=== PATIENT | female | born 1955 | race Caucasian/White ===

== ENCOUNTER 2024-04-07 19:21 | Inpatient (IN) | payer MEDICARE, OTHER, SELFPAY ==
[2024-04-07 16:33] VITALS: BP 99/71
[2024-04-07 16:53] VITALS: BP 123/82
[2024-04-07 17:00] VITALS: BP 121/56
[2024-04-07 17:08] LABS: % Basophils 0.5 % (0-2); % Immature Granulocytes 0.4 % (0-0.5); % Lymphocytes 17.4 % (20.5-51.1); % Monocytes 13.2 % (1.7-9.3); % Neutrophils 67.5 % (42.2-75.2); Absolute Basophils 0.1 10^3/uL (0-0.2); Absolute Eosinophils 0.1 10^3/uL (0-0.7); Absolute Lymphocytes 1.7 10^3/uL (1.2-3.4); Absolute Monocytes 1.3 10^3/uL (0.1-0.6); Absolute Neutrophils 6.6 10^3/uL (1.4-6.5); Hematocrit 36.6 % (37.0-47.0); Hemoglobin 12.6 g/dL (12.0-16.0); Mean Corp Hgb Conc. 34.4 g/dL (33.0-37.0); Mean Corpuscular Volume 89.9 fL (81.0-99.0); Mean Platelet Volume 9.7 fL (7.4-10.4); Nucleated Red Blood Cells % 0 %; Platelet Count 320 10^3/uL (130-400); Red Blood Cell Count 4.07 10^6/uL (4.20-5.40); White Blood Cell Count 9.8 10^3/uL (4.8-10.8)
[2024-04-07] MEDS: TORADOL 30 MG IV ×2 (17:17→20:50)
[2024-04-07] MEDS: ZOFRAN 4 MG IV (17:17)
[2024-04-07] MEDS: NSS 1000 IV (17:18)
[2024-04-07 17:26] LABS: ALT (SGPT) 20 U/L (0-35); AST (SGOT) 26 U/L (14-36); Albumin 4.3 g/dl (3.5-5.0); Alkaline Phosphatase 73 U/L (38-126); Blood Urea Nitrogen 15 mg/dl (7-17); Calcium 8.9 mg/dl (8.4-10.2); Carbon Dioxide 27 mmol/L (22-30); Chloride 99 mmol/L (98-107); Glucose 112 mg/dl (70-99); Potassium 3.6 mmol/L (3.5-5.1); Sodium 135 mmol/L (135-145); Total Bilirubin 1.1 mg/dl (0.2-1.3); Total Protein 7.1 g/dl (6.3-8.2); eGFR > 60.00
--- NOTE | 2024-04-07 17:48 | ED.GENMED ---
History of Present Illness
General
Chief Complaint: Flank Pain
Source: patient
Time Seen by Provider: 04/07/24 17:08
Travel History
Have you had any contact with someone who has COVID-19?: No
Do you have any symptoms of coronavirus? Fever > 100 degrees, chills, cough, shortness of breath, sore throat, loss of taste or smell, muscle aches, or headache?: No
History of Present Illness
History of Present Illness:
68-year-old female with past medical history of hypertension hyperlipidemia presenting to the emergency department for evaluation of left-sided flank pain x 24 hours. Patient was recently on vacation when she was diagnosed with a urinary tract
infection and prescribed Bactrim. Patient states that she had persistent vomiting and is unsure as to how many of the Bactrim she was actually able to keep down other than maybe 1-2 doses. She still endorses nausea and significant left-sided flank
pain but is denying any fevers, chills, rigors.
Past History
Past History
ED Past Medical History: HTN and Hypercholesterolemia
ED Past Surgical History: Appendectomy, Orthopedic and Urological
Social History
Tobacco: Non-smoker
Alcohol: None
Drug: None
Personal:
Living: with family
Employment: Retired
Family History
Family History: Other (Mother with bladder cancer, ovarian cancer and cervical cancer. Father with PE and small bowel obstruction and prostate cancer, family history of diabetes, pacemakers and hypertension)
Review of Systems
Review of Systems
All Other Systems: ROS reviewed and negative except as documented in HPI and ROS
Phy Exam
Physical Exam
Physical Exam:
GENERAL: Alert , appears uncomfortable and in discomfort
EYE: clear conjunctiva b/l
HEAD: NCAT
ENT: mmm.
CARDIAC: Regular rate and rhythm .
LUNGS: Clear breath sounds bilaterally, no acute respiratory distress, no wheezes/rales/rhonchi
ABDOMEN: Soft, without focal tenderness, no r/g, moderate left CVA tenderness
NEUROLOGICAL: Alert and oriented
SKIN: Warm and dry, skin intact.
MUSCULOSKELETAL: well perfused.
PSYCH: Normal and appropriate interaction.
Scores
Heart Failure Risk
Heart Failure Risk Score: Not Applicable
Heart Score for Chest Pain Patients
STEMI patient?: Not applicable
Withdrawal Assessment of Alcohol
Withdrawal Assessment Completed?: Not applicable
Course
Orders/Labs/Results
Orders:
Orders
04/07/24 17:01
Complete Blood Count/With Diff Urgent
Comprehensive Metabolic Panel Urgent
04/07/24 17:11
CT Abd/pel Without Iv Or Oral Urgent
Comment:
Reason For Exam: left flank pain, recent UTI
0.9% Sodium Chloride 1000 ml [Nss] 1,000 ml IV BOLUS
Ketorolac [Toradol] 30 mg IV NOW STA
Ondansetron Injectable [Zofran] 4 mg IV NOW STA
04/07/24 17:37
Urinalysis Reflex To Culture Urgent
Date Specimen was Collected: 04/07/24
Time Specimen was Collected: 17:06
Urine Microscopic Reflex Cult Urgent
Urine Culture Urgent
JADA Source: U
Specimen Description:
Date Specimen was Collected: 04/07/24
Time Specimen was Collected: 17:06
04/07/24 17:56
Tramadol HCl [Ultram] 50 mg PO NOW STA
04/07/24 18:36
CefTRIAXone [Rocephin] 1,000 mg IV NOW STA
04/07/24 19:09
Admit/Transfer Patient As Directed
Co-Sign Provider:
Level of Care: Inpatient admission
Assign to:: Telemetry
Physician / Group: aaliyah prince
Diagnosis: pyelonephritis
Reason for Telemetry: Other
Other Reason for Telemetry: sepsis
Date to Stop Telemetry: 04/09/24
Time to Stop Telemetry: 11:00
Reason for Hospitalization: pyelonephritis
Expected length of stay greater than two midnights?: Yes
ELOS- Estimated Length of Stay in days: 3
I certify the patient meets the requirements for IP care: Yes
04/07/24 19:11
Code Status As Directed
Resuscitation Status: Full Code
04/09/24 11:00
DC Protocol for Telemetry ONCE
Abnormal Lab Results
04/07/24 04/07/24
17:01 17:37
RBC 4.07 L 10^6/uL
(4.20-5.40)
Hct 36.6 L %
(37.0-47.0)
Absolute Neuts (auto) 6.6 H 10^3/uL
(1.4-6.5)
Absolute Monos (auto) 1.3 H 10^3/uL
(0.1-0.6)
Lymphocytes % 17.4 L %
(20.5-51.1)
Monocytes % 13.2 H %
(1.7-9.3)
Glucose 112 H mg/dl
(70-99)
Urine Ketones Trace A
(Negative)
Ur Occult Blood Reflex 2+ A
(Negative)
Leukocyte Esterase Rfl 1+ A
(Negative)
Urine RBC 3-6 A /HPF
(0-2)
Urine WBC (Reflex) 30-40 A /HPF
(0-5)
Urine Bacteria (Reflex) Few A
(Negative)
04/07/24 17:01
04/07/24 17:01
Vital Signs
Initial and Last Documented VS:
Initial Vital Signs
Temp Pulse Resp BP Pulse Ox
99.3 F 103 18 99/71 98
04/07/24 16:33 04/07/24 16:33 04/07/24 16:33 04/07/24 16:33 04/07/24 16:33
Last Documented Vital Signs
Temp Pulse Resp BP Pulse Ox
99.3 F 103 18 121/56 96
04/07/24 16:33 04/07/24 16:33 04/07/24 16:33 04/07/24 17:00 04/07/24 18:30
MDM/Problems Addressed
Differential Diagnosis Includes:
Renal/ureteral colic, cystitis, pyelonephritis
MDM/Problems Addressed:
68-year-old female presenting the emergency department for evaluation of left-sided flank pain. Recently treated for urinary tract infection but had difficult time tolerating the medications. Patient had urine culture result which showed greater
than 100,000 CFU of E. coli. Sensitive to Bactrim. Given her continued symptoms and pain will check labs, urinalysis and CT imaging. Toradol ordered for pain, Zofran for nausea and IV fluids. Reassessment following.
*Radiology
Radiology exam reviewed: radiology read reviewed
*Pulse Oximetry
Patient hypoxic: no
*Critical Care Note
Total Time (30-74mins, 75-104mins- exclusive of procedures): Not Applicable
Data Reviewed
Review of Other/Old Records Reveals: Labs
Source: patient
Comment
Comment:
On reevaluation patient still noting pain despite Toradol. Tramadol ordered for pain control as she notes that she has had relief with this in the past.
Patient Management
Discussion with other providers: Hospitalist
Escalation/DeEscalation of care consider admission/obs:
CT scan without any evidence for obstructing renal or ureteral calculi. No hydronephrosis or hydroureter. Urinalysis still shows 30-40 WBCs. Given patient's difficulty tolerating her oral antibiotic, continued pain and vomiting will admit for IV
antibiotics, fluids and antiemetics as needed. Rocephin ordered. Patient states she has tolerated cephalosporins in the past. Hospitalist team is aware and accepts for continued evaluation and treatment
ED Attending Note
-
Portions of this chart may have been created with voice recognition software.� Occasional wrong word or��sound alike� substitutions may have occurred due to the inherent limitations of voice recognition software.
Discharge Plan
Departure
Patient Disposition: Admit
Date of Disposition: 04/07/24
Time of Disposition: 19:08
Presentation/result/management discussed w/ accepting MD/DO: Hospitalist
Discharge Problem:
Acute pyelonephritis
Interventions
Interventions:
*Risk Screen - Suicide Last Done: 04/07/24 17:03
*General Assessment Last Done: 04/07/24 16:33
*Neglect/Abuse Screening Last Done: 04/07/24 17:03
*ED COVID-19 Vaccine History Last Done: 04/07/24 16:33
DV-Fwuyht-Zjzypsbayp Assessment Last Done: 04/07/24 17:03
ED-Female Genitourinary Assessment Last Done: 04/07/24 17:03
[2024-04-07 17:56] LABS: Urine Albumin Trace (Neg - Trace); Urine Bilirubin Negative (Negative); Urine Character Slightly Cloudy (Clear); Urine Color Yellow; Urine Glucose Negative (Negative); Urine Ketone Trace (Negative); Urine Leukocyte 1+ (Negative); Urine Nitrite Negative (Negative); Urine Occult Blood 2+ (Negative); Urine Specific Gravity 1.005 (<1.030); Urine Urobilinogen Negative (Neg - 1+)
[2024-04-07] MEDS: ULTRAM 50 MG PO (18:00)
[2024-04-07 18:31] LABS: Urine Squamous Cell 16-20 /LPF (Few)
[2024-04-07 18:32] LABS: Urine Bacteria Few (Negative)
[2024-04-07 18:33] LABS: Urine White Cell 30-40 /HPF (0-5)
[2024-04-07] MEDS: ROCEPHIN 1000 MG IV (18:42)
--- NOTE | 2024-04-07 19:23 | HPS.HSE ---
Family Physician
-
Family Physician: Willy Das
Chief Complaint
-
persistent N/V and Lt flank pain
History of Present Illness
HPI
68F HX HTN, HLD recently return from [place] , currently on PO Bactrim for recent DX UTI during the vacation.
Initially stated with Lt flank pain with N/V. Patient reports , N/V continues and cannot keep PO Bactrim down
She was first seen [place] [facility]
She tool Bactrim for 4 -5 days then last 2-3 days she cannot keep Bactrim down due to N/V
HX multiple renal stones and UTI
HX stent , last stent was in 2019
ROS:
Mild/mod Lt CVA tenderness
Still urinary frequency
Urinary incontinence with cough
Denying any fevers, chills, rigors.
At ER
Low grade Temp
Borderline ST
Borderline hypotensive improved with NS 1 L bolus
Medical History
Past Medical History
Past Medical History: Reports HTN and Hypercholesterolemia
Past Surgical History: Reports Appendectomy, Orthopedic and Urological (HX multiple renal stones and UTI HX stent , last stent was in 2019 )
Social History
Tobacco: Non-smoker
Alcohol: None
Drug: None
Personal:
Living: With Family
Family History
Family History: Not pertinent
Allergies / Home Medications
Allergies reflects when Allergies were last updated in [employer].
Home Medications with original date entered in [employer]
Allergy/Medication List:
Allergies
Allergy/AdvReac Type Severity Reaction Status Date / Time
codeine Allergy Unknown Anaphylaxis Verified 04/07/24 16:38
hydromorphone [From Dilaudid] Allergy Unknown Anaphylaxis Verified 04/07/24 16:38
meperidine [From Demerol] Allergy Unknown Anaphylaxis Verified 04/07/24 16:38
morphine Allergy Unknown Anaphylaxis Verified 04/07/24 16:38
Penicillins Allergy Rash Verified 04/07/24 16:38
Home Medications
tamsulosin 0.4 mg capsule 0.4 mg PO DAILY #10 caps 06/18/20
ketorolac 10 mg tablet 10 mg PO Q6HPRN PRN pain #7 tabs 06/22/20
ondansetron HCl 8 mg tablet (Zofran) 8 mg PO QID PRN nausea #20 tabs 06/22/20
tramadol 50 mg tablet 50 mg PO Q4HPRN PRN pain #15 tabs 06/22/20
magnesium oxide 400 mg PO DAILY 06/25/20
nifedipine 30 mg tablet,extended release 30 mg PO DAILY 06/25/20
polyethylene glycol 3350 17 gram/dose oral powder 238 gm PO .PREOP 06/25 @1700 06/25/20
prazosin 1 mg capsule 1 mg PO DAILY 06/25/20
Review of Systems
-
Constitutional: Reports No Symptoms
EENT: Reports No Symptoms
Respiratory: Reports No Symptoms
Cardiac: Reports No Symptoms
Abdomen/GI: Reports Nausea and Vomiting
: Reports Flank Pain (Lt CVA tenderness )
Musculoskeletal: Reports No Symptoms
Skin: Reports No Symptoms
Neurological: Reports No Symptoms
Endocrine: Reports No Symptoms
Hematologic/Lymphatic: Reports No Symptoms
Psych: Reports No Symptoms
Physical Exam
Vital Signs
Vital Signs
Temp Pulse Resp BP Pulse Ox
99.3 F 103 18 121/56 96
04/07/24 16:33 04/07/24 16:33 04/07/24 16:33 04/07/24 17:00 04/07/24 18:30
Physical Exam
General: Conversant and Other ( in discomfort)
HEENT: NormoCephalic, Anicteric, Moist mucous membranes and [place] Conjunctivae
Respiratory: Clear; No Wheezes, Rales or Rhonchi
Cardiac: S1/S2, Regular Rhythm and Tachycardia
Breast: Deferred by me
GI: Soft, Non Tender, Non Distended and Normal Bowel Sounds
Rectal: Deferred by Provider
Genito-urinary: Costovertebral angle tend (Lt CVA tenderness )
Musculoskeletal: No Edema
Neuro: AO x 3 and Nonfocal/grossly intact
Psych: Calm
Laboratory Results
-
04/07/24 17:01
04/07/24 17:
Laboratory Results
Total Bilirubin 1.1 mg/dl (0.2-1.3) 04/07/24 17:
AST 26 U/L (14-36) 04/07/24 17:
ALT 20 U/L (0-35) 04/07/24 17:
Alkaline Phosphatase 73 U/L (38-126) 04/07/24 17:01
Data Reviewed
-
CT Scan: Report Reviewed by me
Lab Data: Labs Reviewed by me
Impression/Plan
-
Reviewed VS: T 99.3 ST @ 103 BP 99/71--> 120/56
Data
Unremarkable CBC
Unremarkable CMP
Abn UA POS WCC 30- 40 , RBC 3-6 POS LE
UCx sent
CT Abd/pel Without Iv Or Oral
1). There is no evidence of acute pathology. There are no obstructing renal or ureteral calculi.There is no hydronephrosis or hydroureter.
2). There are bilateral nonobstructing renal calculi.
3). There is cholelithiasis
4). 1 cm pericardial effusion
NO PRIOR hospitalist admission:
ASSESSMENT & PLAN
Pending Rx reconciliation
Persistent UTI - failed OP Bactrim
Persistent urinary frequency
Persistent N/V and Mild/Moderate Lt CVA tenderness
However no CT evidence of acute pathology
POS b/l non obstructing renal calculi
HX multiple renal stones and UTI
HX stent , last stent was in 2019
Denying any fevers, chills, rigors.
- UCx
- cont. IV CFTX
- cont. IV NS
- cont. Tamsulosin
- IV Toradol PRN
- Tylenol PRN
Borderline hypotensive
Essential HTN
- held Nifedipine
- IVF and observe BP and HR
HLD
- await Rx reconciliation
DVT Px: LMWH
Code: Full
IP TLM
--- NOTE | 2024-04-07 20:00 | PTCARENOTE ---
Pt. admitted to floor from E.D., AAO x 3, vs stable, NSR on monitor, call whitten within reach.
[2024-04-07 20:26] VITALS: BP 126/70; BMI 35.0
[2024-04-07] MEDS: LR 1000 IV (20:50)
[2024-04-07] MEDS: FLUSH (NSS) 1 FLUSH IV (20:51)
[2024-04-07] MEDS: COMPAZINE 5 MG IV (21:10)
[2024-04-07 23:00] VITALS: BP 108/48
[2024-04-08 03:00] VITALS: BP 116/60
[2024-04-08 07:09] VITALS: BP 109/60
[2024-04-08] MEDS: ULTRAM 50 MG PO ×3 (07:40→21:01)
[2024-04-08] MEDS: TYLENOL 650 MG PO ×3 (07:40→21:01)
[2024-04-08] MEDS: LR 1000 IV ×2 (07:41→20:58)
[2024-04-08 09:11] LABS: Mean Corp Hgb Conc. 33.3 g/dL (33.0-37.0); Mean Corpuscular Hgb 30.7 pg (27.0-31.0); Mean Corpuscular Volume 92.2 fL (81.0-99.0); Platelet Count 273 10^3/uL (130-400); Red Blood Cell Count 3.58 10^6/uL (4.20-5.40); Red Cell Dist. Width 12.2 % (11.5-14.5); White Blood Cell Count 8.4 10^3/uL (4.8-10.8)
[2024-04-08 09:30] LABS: Blood Urea Nitrogen 12 mg/dl (7-17); Calcium 8.2 mg/dl (8.4-10.2); Carbon Dioxide 24 mmol/L (22-30); Chloride 100 mmol/L (98-107); Estimated Creatinine Clearance 71 ml/min; Glucose 127 mg/dl (70-99); Potassium 3.5 mmol/L (3.5-5.1); Sodium 135 mmol/L (135-145); eGFR > 60.00
--- NOTE | 2024-04-08 10:30 | W.PN.HOSP.TC ---
Today's Communication/Plan
-
see bold
Assessment / Plan
Assessment / Plan
Gen: NAD, AAOx3.
Eyes: EOMI, PERRLA, no scleral icterus.
Neck: supple.
CV: RRR, +S1/S2, no m/r/g.
Resp: CTAB, no rales, wheezes, or rhonchi.
Abd: +BS, soft, NT, ND
Skin: No rashes.
Neuro: CN 2-12 intact, non-focal.
Psych: Normal mood and affect.
CT A/P (w/o contrast): No evidence of acute pathology. No obstructing renal or ureteral calculi. No hydronephrosis or hydroureter. B/L nonobstructing renal calculi. Cholelithiasis. 1 cm pericardial effusion.
Acute on chronic UTI:
-failed outpt Bactrim
-cont Rocephin
-follow UCx
-IVFs for borderline hypotension
Other problems:
Obesity due to excess calories
Essential HTN: Holding Nifedipine/Dyazide based on current BPs
HLD
FULL/Lovenox
Anticipated Discharge: Within 24 hours
Subjective/Interval History
-
Date of Service: April 08, 2024
Denies chest pain or shortness of breath. Complains of left flank pain.
Objective Data
-
Labs:
Laboratory Results
04/08/24
08:19
WBC 8.4
Hgb 11.0 L
Hct 33.0 L
Plt Count 273
Sodium 135
Potassium 3.5
Chloride 100
Carbon Dioxide 24
BUN 12
Creatinine 0.8
Glucose 127 H
Calcium 8.2 L
Vital Signs:
Vital Signs
Temp Pulse Resp BP Pulse Ox
99.0 F 83 16 109/60 92
04/08/24 07:09 04/08/24 07:09 04/08/24 07:09 04/08/24 07:09 04/08/24 07:09
I&O
04/07/24 04/08/24 04/09/24
06:59 06:59 06:59
Intake Total 940 / 940
Balance 940 / 940
--- NOTE | 2024-04-08 14:32 | CM ---
Patient seen bedside.
IA completed.
Patient lives with son in a 2 story home with no steps. First floor set up.
patient independent prior to admission without assistive devices.
Patient drives and works.
No VN in the past.
PCP: Dr Kendell Das
Pharmacy: [facility]
Plan: home no needs.
[2024-04-08 15:05] VITALS: BP 110/54
[2024-04-08] MEDS: STERILE WATER FOR INJECTION 10 ML IV (17:03)
[2024-04-08] MEDS: ROCEPHIN 1000 MG IV (17:03)
[2024-04-08] MEDS: LOVENOX 40 MG SC (17:04)
[2024-04-08] MEDS: FLUSH (NSS) 1 FLUSH IV ×2 (17:17)
[2024-04-08 23:56] VITALS: BP 115/58
[2024-04-09 07:00] VITALS: BP 124/58
[2024-04-09] MEDS: TORADOL 30 MG IV (07:46)
[2024-04-09] MEDS: LR 1000 IV (08:08)
[2024-04-09 08:53] LABS: Hematocrit 31.6 % (37.0-47.0); Hemoglobin 10.5 g/dL (12.0-16.0); Mean Corp Hgb Conc. 33.2 g/dL (33.0-37.0); Mean Corpuscular Hgb 30.7 pg (27.0-31.0); Mean Corpuscular Volume 92.4 fL (81.0-99.0); Mean Platelet Volume 9.8 fL (7.4-10.4); Platelet Count 240 10^3/uL (130-400); Red Blood Cell Count 3.42 10^6/uL (4.20-5.40); Red Cell Dist. Width 12.4 % (11.5-14.5); White Blood Cell Count 5.7 10^3/uL (4.8-10.8)
[2024-04-09 10:01] LABS: Blood Urea Nitrogen 10 mg/dl (7-17); Calcium 8.2 mg/dl (8.4-10.2); Carbon Dioxide 30 mmol/L (22-30); Chloride 103 mmol/L (98-107); Estimated Creatinine Clearance 94 ml/min; Glucose 124 mg/dl (70-99); Potassium 3.5 mmol/L (3.5-5.1); Sodium 138 mmol/L (135-145); eGFR > 60.00
--- NOTE | 2024-04-09 10:44 | W.PN.HOSP.TC ---
Today's Communication/Plan
-
d/c
Assessment / Plan
Assessment / Plan
Gen: NAD, AAOx3.
Eyes: EOMI, PERRLA, no scleral icterus.
Neck: supple.
CV: remains RRR, +S1/S2, no m/r/g.
Resp: remains CTAB, no rales, wheezes, or rhonchi.
Abd: remains +BS, soft, NT, ND
Skin: No rashes.
Neuro: CN 2-12 intact, non-focal.
Psych: Normal mood and affect
04/07/24 17:37 Urine Urine Culture - Final
Escherichia coli
CT A/P (w/o contrast): No evidence of acute pathology. No obstructing renal or ureteral calculi. No hydronephrosis or hydroureter. B/L nonobstructing renal calculi. Cholelithiasis. 1 cm pericardial effusion.
Acute on chronic UTI:
-failed outpt Bactrim (UCx with E coli resistant to Bactrim)
-currently on Rocephin, switch to Cipro to complete 7 days abx
-received IVFs for borderline hypotension
Other problems:
Obesity due to excess calories
Essential HTN: Holding Nifedipine/Dyazide based on current BPs
HLD
FULL/Lovenox
Total time spent on d/c = 31 min. This included today's physical exam, progress note, review of laboratory and diagnostic data, preparation of discharge documents and prescriptions, and discussions about the pt's hospital course and discharge plan
with the patient and other medical librarian involved in the patient's care.
Anticipated Discharge: Today
Subjective/Interval History
-
Date of Service: April 09, 2024
No new complaints.
Objective Data
-
Labs:
Laboratory Results
04/09/24
08:34
WBC 5.7
Hgb 10.5 L
Hct 31.6 L
Plt Count 240
Sodium 138
Potassium 3.5
Chloride 103
Carbon Dioxide 30
BUN 10
Creatinine 0.6
Glucose 124 H
Calcium 8.2 L
Vital Signs:
Vital Signs
Temp Pulse Resp BP Pulse Ox
99.5 F 69 16 124/58 94
04/09/24 07:00 04/09/24 07:00 04/09/24 07:00 04/09/24 07:00 04/09/24 07:00
I&O
04/08/24 04/09/24 04/10/24
06:59 06:59 06:59
Intake Total 940 / 940 246 / 246
Balance 940 / 940 246 / 246
[2024-04-09 12:36] VITALS: BP 145/80
--- NOTE | 2024-04-09 14:06 | W.DCSUMMARY ---
Discharge Summary
Discharge Data
Date of Admission: 04/07/24
Date of Discharge: 04/09/24
-
Pending Results: No
Hospital Course
Primary diagnoses:
Acute on chronic urinary tract infection
Secondary diagnoses:
Obesity due to excess calories
Essential hypertension
Hyperlipidemia
Consultants:
None
Imaging:
CT A/P (w/o contrast): No evidence of acute pathology. No obstructing renal or ureteral calculi. No hydronephrosis or hydroureter. B/L nonobstructing renal calculi. Cholelithiasis. 1 cm pericardial effusion.
Hospital course: 68-year-old female who presented with chief complaint of nausea and vomiting as well as left flank pain as outlined in the H&P done on admission. CT scan of the abdomen pelvis was unremarkable. Patient was afebrile without
leukocytosis. Urinalysis was suggestive of urinary tract infection. The patient had been on Bactrim prior to admission. Urine culture grew E. coli that was resistant to Bactrim. She was on Rocephin while hospitalized and switched to
ciprofloxacin to complete 7 days of antibiotics on discharge. Patient was borderline hypotensive and her home antihypertensive medications were held. She received IV fluids while hospitalized.
Discharge Plan
-
Patient Disposition: Home (Routine Discharge)
Discharge Diagnosis/Procedures: Acute on chronic urinary tract infection
Condition: Good
Diet: Other diet
Additional Diets: Heart healthy
Activity: No restrictions
Driving Restrictions: As prior to admission
Bathing Restrictions: None
Referrals:
Willy Das MD [Family Provider] - in less than 1 week
Prescriptions:
New
ciprofloxacin HCl [Cipro] 500 mg tablet
500 mg PO BID Qty: 14 0RF
Continued
magnesium oxide 400 MG tablet
400 mg PO SUTUTHSA
Discontinued
prazosin 1 MG capsule
1 mg PO DAILY
nifedipine 30 MG tablet extended release
30 mg PO DAILY
triamterene-hydrochlorothiazid [Dyazide] 37.5-25 mg Capsule
1 cap PO DAILY
ibuprofen [Motrin] 600 mg Tablet
600 mg PO DAILYPRN PRN (Reason: MILD PAIN)
Discharge Orders:
Discharge Patient (As Directed); Ordered 04/09/24
Ordered By: Mihai Stacy
Discharge Date and Time
Discharge Date/Time: 04/09/24 13:25
Print Language: [id number]
== END 2024-04-09 13:25 | disposition home or self-care (01) | DRG 690 ==
LOC: 4 WEST ACU 19:21
PROVIDERS: Physician Assistant Medical; Registered Nurse; ADMITTING PHYSICIAN Internal Medicine; ATTENDING PHYSICIAN Internal Medicine; EMERGENCY PHYSICIAN Emergency Medicine; FAMILY PHYSICIAN Family Medicine
DX: N39.0 Urinary tract infection, site not specified (principal); E66.09 Other obesity due to excess calories; I10 Essential (primary) hypertension; E78.00 Pure hypercholesterolemia, unspecified; Z68.35 Body mass index [BMI] 35.0-35.9, adult
CPT/HCPCS: 74176; 80048; 80053; 81003; 81015; 85025; 85027; 87071; 87086; 87186; 96361; 96374; 96375; 99285

== ENCOUNTER → 2025-08-13 08:59 | Outpatient (REF) | payer MEDICARE, OTHER, SELFPAY | LOC: HWRAD 08:59 | PROVIDERS: ATTENDING PHYSICIAN Physician Assistant; FAMILY PHYSICIAN Family Medicine | DX: M81.0 Age-related osteoporosis without current pathological fracture (principal) | CPT/HCPCS: 77080 ==